=== PATIENT | male | born 1985 | race Caucasian/White ===

== ENCOUNTER 2017-11-26 10:00 | Observation (INO) | payer OTHER ==
[2017-11-26] MEDS ORDERED: NA CHLORIDE 0.9% 1,000 ML ONE ×2 (10:33→14:23)
[2017-11-26] MEDS ORDERED: KETOROLAC 30 MG/ML INJ ONE ×2 (10:33→15:23)
[2017-11-26] MEDS ORDERED: ONDANSETRON 4 MG/2 ML VIAL ONE (10:33)
[2017-11-26 10:51] LABS: Absolute Lymphocytes (CBC) 1.4 K/uL (0.7-4.9); Absolute Monocytes 1.1 K/uL (0.1-1.3); Absolute Neutrophil 17.8 K/uL (1.8-8.0); Basophils % 0.1 % (0-1.3); Eosinophils % 0.1 % (0-4.4); Hematocrit 43.5 % (39.6-49.0); Lymphocytes % 6.7 % (15.3-44.8); MCH 30.5 pg (27.0-35.0); MCV 90.8 fL (80-100); MPV 7.5 fL (7.6-11.3); Monocytes % 5.6 % (3.3-12.3); RBC Red Blood Cell Count 4.79 M/uL (4.33-5.43)
[2017-11-26 11:05] LABS: Potassium 3.9 mEq/L (3.6-5.0)
[2017-11-26 11:12] LABS: Albumin 4.5 g/dL (3.2-5.5); Bilirubin Direct 0.1 mg/dL (0-0.2); Bilirubin Total 0.7 mg/dL (0.3-1.2); Protein, Total 7.5 g/dL (6.0-8.3)
[2017-11-26 11:28] LABS: Blood Morphology Comment NOT SEEN (NOT SEEN); Platelet Estimate ADEQ
[2017-11-26 11:45] LABS: Urine Blood NEGATIVE (NEG); Urine Glucose NEGATIVE (NEG); Urine Protein NEGATIVE (NEG)
[2017-11-26 12:17] LABS: Urine Bacteria <20 /HPF (NONE SEEN); Urine RBC <5 /HPF (NONE SEEN)
[2017-11-26 12:18] LABS: Urine Culture Reflex Order NOT NEEDED
--- NOTE | 2017-11-26 14:06 | RAD REPORT ---
EXAM DESCRIPTION: CT - Abdomen Pelvis W Contrast - 11/26/2017 1:46 pm COMPARISON: None. TECHNIQUE: Biphasic, helical CT imaging of the abdomen and pelvis was performed following 100 ml non -ionic IV contrast. Oral contrast was given. All CT scans are performed using dose optimization technique as appropriate and may include automated exposure control or mA/KV adjustment according to patient size. FINDINGS: No suspicious findings in the lung bases. The liver, spleen, and pancreas show no suspicious findings. Gallbladder and biliary tree are also wi thout suspicious finding. Symmetric renal function is seen with no hydronephrosis or suspicious renal mass. No pyelonephritis o r acute renal parenchymal process. No urinary bladder abnormality. No prostate enlargement. A 16 mill imeter cyst in the posterior prostate may be a urethral diverticulum. No suspicion of an active or ac [place] process for this finding. No gastric dilatation or gastric wall thickening. No dilated large or small bowel. The appendix is ab normal at 8- 9 mm in diameter. [place] of the appendix are slightly thickened and edematous and there i s a trace amount of stranding in the periappendiceal fat. There are several right lower quadrant mese nteric lymph nodes. The right-side colon and terminal ileum are well opacified by oral contrast. Ther e is no contrast within the lumen of the appendix. No free air, free fluid or pneumatosis. No other area of inflammatory stranding. No mass or bulky lymphadenopathy. A small 2 centimeter fat only umbilical hernia is present. Fat extends into the orig in of the left inguinal canal. No adrenal abnormality. No suspicious bony findings. IMPRESSION: Early acute appendicitis. No abscess, free air or complicating factor. Appendix is classic right lower quadrant location. Additional nonacute findings detailed in the body of the report.
[2017-11-26] MEDS ORDERED: FENTANYL CITR 100 MCG/2 ML ONE ×2 (14:22→14:46)
[2017-11-26] MEDS ORDERED: CEFOXITIN/SWI 1gm 1 GM/10 ML SYR ONE (14:22)
[2017-11-26] MEDS ORDERED: METRONIDAZOLE 500mg IVPB 500 MG/100 ML BAG IV ONE (14:23)
[2017-11-26] MEDS ORDERED: Ringers Lactate 0 ML IV ONE (14:31)
--- NOTE | 2017-11-26 14:31 | EDPHYS ---
Physician Documentation [facility] Name: Esequiel Wynne Age: 32 yrs Sex: Male : 1985 Arrival Date: 11/26/2017 Time: 10:03 Bed 17 Private MD: Tc Shankar ED Physician Fili Hutchins HPI: 11/26 10:24 This 32 yrs old Male presents to ER via Ambulatory with complaints of cp Abdominal Pain. 10:24 The patient presents with abdominal pain right lower quadrant. Onset: The cp symptoms/episode began/occurred this morning. Associated signs and symptoms: Pertinent positives: nausea, Pertinent negatives: blood in stools, chest pain, constipation, diarrhea, dysuria, fever, vomiting. 10:24 The symptoms are described as constant. Modifying factors: the symptoms are aggravated cp by pressure. Severity of pain: in the emergency department the pain is actually worse moderately. Historical: - Allergies: 10:14 No Known Allergies; aj - Home Meds: 10:14 None [Active]; aj - PMHx: 10:14 None; aj - PSHx: 10:14 None; aj - Immunization history:: Adult Immunizations up to date. - Social history:: Smoking status: Patient/guardian denies using tobacco. - Ebola Screening: : No symptoms or risks identified at this time. ROS: 10:30 Constitutional: Negative for body aches, chills, fever, poor PO intake. cp 10:30 Eyes: Negative for injury, pain, redness, and discharge. cp 10:30 ENT: Negative for drainage from ear(s), ear pain, sore throat, difficulty swallowing, difficulty handling secretions. 10:30 Cardiovascular: Negative for chest pain, edema, palpitations. 10:30 Respiratory: Negative for cough, shortness of breath, wheezing. 10:30 Abdomen/GI: Positive for abdominal pain, Negative for vomiting, diarrhea, constipation, black/tarry stool, rectal bleeding. 10:30 Back: Negative for pain at rest, pain with movement, radiated pain. 10:30 : Positive for right groin pain, Negative for urinary symptoms. 10:30 Skin: Negative for cellulitis, rash. 10:30 Neuro: Negative for altered mental status, dizziness, headache, weakness. 10:30 All other systems are negative. Exam: 10:35 Constitutional: The patient appears in no acute distress, alert, awake, non-toxic, well cp developed, well nourished, uncomfortable. 10:35 Head/Face: Normocephalic, atraumatic. Eyes: Pupils equal round and reactive to light, cp extra-ocular motions intact. Lids and lashes normal. Conjunctiva and sclera are non-icteric and not injected. Cornea within normal limits. Periorbital areas with no swelling, redness, or edema. ENT: Nares patent. No nasal discharge, no septal abnormalities noted. Tympanic membranes are normal and external auditory canals are clear. Oropharynx with no redness, swelling, or masses, exudates, or evidence of obstruction, uvula midline. Mucous membranes moist. Chest/axilla: Normal chest wall appearance and motion. Nontender with no deformity. No lesions are appreciated. Cardiovascular: Regular rate and rhythm with a normal S1 and S2. No gallops, murmurs, or rubs. Normal PMI, no JVD. No pulse deficits. Respiratory: Lungs have equal breath sounds bilaterally, clear to auscultation and percussion. No rales, rhonchi or wheezes noted. No increased work of breathing, no retractions or nasal flaring. 10:35 Abdomen/GI: Inspection: abdomen appears normal, Bowel sounds: active, all quadrants, cp Palpation: soft, in all quadrants, moderate abdominal tenderness, in the right lower quadrant, rebound tenderness, is not appreciated, voluntary guarding, is elicited in the right lower quadrant. 10:35 Back: CVA tenderness, is absent. 10:35 Musculoskeletal/extremity: Exam is negative for decreased range of motion, deformity, cp edema, injury. 10:35 Skin: cellulitis, is not appreciated, no rash present. 10:35 Neuro: Orientation: to person, place \T\ time. Mentation: is normal, Cerebellar function: is grossly normal, Motor: moves all fours, Sensation: is normal. Vital Signs: 10:14 BP 101 / 73; Pulse 95; Resp 16; Temp 98.8; Pulse Ox 99% on R/A; Weight 94.8 kg; Height aj 5 ft. 11 in. (180.34 cm); Pain 7/10; 11:00 BP 108 / 76; Pulse 88; Resp 16; Pulse Ox 100% on R/A; Pain 3/10; hb 12:00 BP 116 / 76; Pulse 86; Resp 15; Pulse Ox 100% on R/A; Pain 2/10; hb 13:00 BP 108 / 68; Pulse 74; Resp 16; Pulse Ox 100% on R/A; hb 13:57 BP 107 / 67; Pulse 78; Resp 15; Pulse Ox 100% on R/A; Pain 2/10; hb 10:14 Body Mass Index 29.15 (94.80 kg, 180.34 cm) aj MDM: 10:19 Patient medically screened. cp 14:15 Data reviewed: vital signs, nurses notes, lab test result(s), radiologic studies, CT cp scan. 14:17 Physician consultation: Jae Bhatt MD was called at 14:17, was contacted at 14:17, cp regarding admission, to the operating room, patient's condition. 11/26 10:23 Order name: Amylase, Serum; Complete Time: 11:39 cp 11/26 10:23 Order name: Basic Metabolic Panel; Complete Time: 11:39 cp 11/26 11:39 Interpretation: Normal except: GFR 87. cp 11/26 10:23 Order name: CBC with Diff; Complete Time: 11:39 cp 11/26 11:39 Interpretation: Normal except: WBC 20.4; MPV 7.5; TEMITOPE% 87.5; LYM% 6.7; NEUT A 17.8. cp 11/26 10:23 Order name: Creatinine for Radiology; Complete Time: 11:39 cp 11/26 10:23 Order name: Hepatic Function; Complete Time: 11:39 cp 11/26 10:23 Order name: Lipase; Complete Time: 11:39 cp 11/26 10:23 Order name: Urine Microscopic Only; Complete Time: 12:25 cp 11/26 11:03 Order name: CT Abd/Pelvis - W/Contrast; Complete Time: 14:08 cp 11/26 11:28 Order name: Manual Differential; Complete Time: 11:39 EDMS 11/26 11:39 Interpretation: Normal except: BANDS [F] 3; LYM 10. cp 11/26 11:32 Order name: Urine Dipstick--Ancillary (enter results); Complete Time: 12:25 bd 11/26 10:23 Order name: IV Saline Lock; Complete Time: 10:50 cp 11/26 10:23 Order name: Labs collected and sent; Complete Time: 10:50 cp 11/26 10:23 Order name: Urine Dipstick-Ancillary (obtain specimen); Complete Time: 10:50 cp 11/26 14:02 Order name: NPO; Complete Time: 14:13 cp Administered Medications: 10:33 Drug: NS 0.9% 1000 ml Route: IV; Rate: 1 bolus; Site: right antecubital; hb 10:33 Drug: TORadol 30 mg Route: IVP; Site: right antecubital; hb 11:00 Follow up: Response: No adverse reaction; Pain is decreased hb 10:33 Drug: Zofran 4 mg Route: IVP; Site: right antecubital; hb 11:00 Follow up: Response: No adverse reaction hb 14:11 CANCELLED (Physician Discretion): Mefoxin 1 grams IVPB once over 30 mins; (mix in 50 mL cp NS) 14:28 Drug: NS 0.9% 1000 ml Route: IV; Rate: 125 ml/hr; Site: right antecubital; hb 14:40 Follow up: IV Status: Infusion continued upon admission hb 14:28 Drug: Mefoxin 2 grams Route: IVPB; Infused Over: 30 mins; Site: right antecubital; hb 14:40 Follow up: IV Status: Infusion continued upon admission hb 14:28 Drug: fentaNYL (PF) 25 mcg Route: IVP; Site: right antecubital; hb 15:55 Follow up: Response: Medication administered at discharge. hb 14:29 Drug: metroNIDAZOLE 500 mg Volume: 100 ml; Route: IVPB; Infused Over: 30 mins; Site: hb right antecubital; 14:40 Follow up: IV Status: Infusion continued upon admission hb Disposition: 19:15 Co-signature as Attending Physician, Fili Hutchins MD I agree with the assessment and kdr plan of care. Disposition: 11/26/17 14:30 Hospitalization ordered by Jae Bhatt for Observation. Preliminary diagnosis is Acute appendicitis. - Bed requested for Telemetry/MedSurg (observation). - Status is Observation. hb - Condition is Stable. - Problem is new. - Symptoms have improved. UTI on Admission? No Signatures: Dispatcher [employer] EDMS Ray, Fanta, RN RN aj Rittger, Fili, MD MD kdr Page, Toney, PA PA cp Conroy, Raquel, RN RN hb Corrections: (The following items were deleted from the chart) 11:39 11:02 Normal except: WBC 20.4; MPV 7.5; TEMITOPE% 87.5; LYM% 6.7. cp cp 14:11 14:02 Mefoxin 1 grams IVPB once over 30 mins; (mix in 50 mL NS) ordered. cp cp 14:22 14:10 Abdomen Limited+US.RAD.BRZ ordered. EDMS EDMS 14:51 14:30 Hospitalization Ordered by Jae Bhatt MD for Observation. Preliminary diagnosis hb is Acute appendicitis. Bed requested for Telemetry/MedSurg (observation). Status is Observation. Condition is Stable. Problem is new. Symptoms have improved. UTI on Admission? No. cp
--- NOTE | 2017-11-26 14:31 | ER ---
Nurse's Notes [facility] Name: Esequiel Wynne Age: 32 yrs Sex: Male : 1985 Arrival Date: 11/26/2017 Time: 10:03 Bed 17 Private MD: Tc Shankar Diagnosis: Acute appendicitis Presentation: 11/26 10:13 Presenting complaint: Patient states: RLQ abdominal pain that started this AM. aj Transition of care: patient was not received from another setting of care. Onset of symptoms was November 26, 2017. Care prior to arrival: None. 10:13 Method Of Arrival: Ambulatory aj 10:13 Acuity: TOMMY 3 aj 10:30 Risk Assessment: Do you want to hurt yourself or someone else? Patient reports no hb desire to harm self or others. Initial Sepsis Screen: Does the patient meet any 2 criteria? No. Patient's initial sepsis screen is negative. Does the patient have a suspected source of infection? No. Patient's initial sepsis screen is negative. Triage Assessment: 10:14 General: Appears in no apparent distress. uncomfortable, Behavior is calm, cooperative, aj appropriate for age. Pain: Complains of pain in right lower quadrant. Neuro: Level of Consciousness is awake, alert, obeys commands, Oriented to person, place, time, situation, Appropriate for age. Respiratory: Airway is patent Respiratory effort is even, unlabored, Respiratory pattern is regular, symmetrical. GI: Reports lower abdominal pain. Derm: Skin is intact, is healthy with good turgor, Skin is pink, warm \T\ dry. normal. Historical: - Allergies: 10:14 No Known Allergies; aj - Home Meds: 10:14 None [Active]; aj - PMHx: 10:14 None; aj - PSHx: 10:14 None; aj - Immunization history:: Adult Immunizations up to date. - Social history:: Smoking status: Patient/guardian denies using tobacco. - Ebola Screening: : No symptoms or risks identified at this time. Screenin:51 Abuse screen: Denies threats or abuse. Denies injuries from another. Nutritional hb screening: No deficits noted. Tuberculosis screening: No symptoms or risk factors identified. Fall Risk None identified. Assessment: 10:30 General: Appears in no apparent distress. uncomfortable, Behavior is cooperative, hb anxious. Pain: Pain currently is 7 out of 10 on a pain scale. Neuro: Level of Consciousness is awake, alert, obeys commands, Oriented to person, place, time, situation. Cardiovascular: Capillary refill < 3 seconds Patient's skin is warm and dry. Respiratory: Airway is patent Trachea midline Respiratory effort is even, unlabored, Respiratory pattern is regular, symmetrical. GI: Bowel sounds present X 4 quads. Abd is soft X 4 quads Abdomen is tender to palpation in right lower quadrant Reports lower abdominal pain, nausea. : No signs and/or symptoms were reported regarding the genitourinary system. EENT: No signs and/or symptoms were reported regarding the EENT system. Derm: No signs and/or symptoms reported regarding the dermatologic system. Skin is intact, is healthy with good turgor, Skin is pink, warm \T\ dry. Musculoskeletal: No signs and/or symptoms reported regarding the musculoskeletal system. 11:30 Reassessment: Patient appears in no apparent distress at this time. No changes from hb previously documented assessment. Patient and/or family updated on plan of care and expected duration. Pain level reassessed. Patient is alert, oriented x 3, equal unlabored respirations, skin warm/dry/pink. 11:51 Reassessment: Pt finished drinking oral contrast, CT dept notified. hb 12:43 Reassessment: Patient appears in no apparent distress at this time. Patient and/or hb family updated on plan of care and expected duration. Pain level reassessed. Patient is alert, oriented x 3, equal unlabored respirations, skin warm/dry/pink. Patient states symptoms have improved. 13:45 Reassessment: Patient appears in no apparent distress at this time. Patient and/or hb family updated on plan of care and expected duration. Pain level reassessed. Patient is alert, oriented x 3, equal unlabored respirations, skin warm/dry/pink. Patient states symptoms have improved. 14:30 Reassessment: Patient appears in no apparent distress at this time. No changes from hb previously documented assessment. Patient and/or family updated on plan of care and expected duration. Pain level reassessed. Patient is alert, oriented x 3, equal unlabored respirations, skin warm/dry/pink. Vital Signs: 10:14 BP 101 / 73; Pulse 95; Resp 16; Temp 98.8; Pulse Ox 99% on R/A; Weight 94.8 kg; Height aj 5 ft. 11 in. (180.34 cm); Pain 7/10; 11:00 BP 108 / 76; Pulse 88; Resp 16; Pulse Ox 100% on R/A; Pain 3/10; hb 12:00 BP 116 / 76; Pulse 86; Resp 15; Pulse Ox 100% on R/A; Pain 2/10; hb 13:00 BP 108 / 68; Pulse 74; Resp 16; Pulse Ox 100% on R/A; hb 13:57 BP 107 / 67; Pulse 78; Resp 15; Pulse Ox 100% on R/A; Pain 2/10; hb 10:14 Body Mass Index 29.15 (94.80 kg, 180.34 cm) aj ED Course: 10:03 Patient arrived in ED. mr 10:03 None, None is Private Physician. mr 10:10 Tc Shankar MD is Private Physician. mr 10:14 Triage completed. aj 10:14 Arm band placed on right wrist. Patient placed in waiting room, Patient notified of aj wait time. 10:16 Raquel Conroy, LEANDRO is Primary Nurse. hb 10:16 Toney Kaur PA is PHCP. cp 10:16 Fili Hutchins MD is Attending Physician. cp 10:32 Inserted saline lock: 20 gauge in right antecubital area, using aseptic technique. hb Blood collected. 10:51 Patient has correct armband on for positive identification. Placed in gown. Bed in low hb position. Call light in reach. Side rails up X 1. 13:[address] via wheelchair. mw3 13:45 CT completed. Patient tolerated procedure well. Patient moved back from CT. mw3 13:46 CT Abd/Pelvis - W/Contrast In Process Unspecified. EDMS 14:29 Jae Bhatt MD is Hospitalizing Provider. cp 14:45 No provider procedures requiring assistance completed. Patient admitted, IV remains in hb place. Administered Medications: 10:33 Drug: NS 0.9% 1000 ml Route: IV; Rate: 1 bolus; Site: right antecubital; hb 10:33 Drug: TORadol 30 mg Route: IVP; Site: right antecubital; hb 11:00 Follow up: Response: No adverse reaction; Pain is decreased hb 10:33 Drug: Zofran 4 mg Route: IVP; Site: right antecubital; hb 11:00 Follow up: Response: No adverse reaction hb 14:11 CANCELLED (Physician Discretion): Mefoxin 1 grams IVPB once over 30 mins; (mix in 50 mL cp NS) 14:28 Drug: NS 0.9% 1000 ml Route: IV; Rate: 125 ml/hr; Site: right antecubital; hb 14:40 Follow up: IV Status: Infusion continued upon admission hb 14:28 Drug: Mefoxin 2 grams Route: IVPB; Infused Over: 30 mins; Site: right antecubital; hb 14:40 Follow up: IV Status: Infusion continued upon admission hb 14:28 Drug: fentaNYL (PF) 25 mcg Route: IVP; Site: right antecubital; hb 15:55 Follow up: Response: Medication administered at discharge. hb 14:29 Drug: metroNIDAZOLE 500 mg Volume: 100 ml; Route: IVPB; Infused Over: 30 mins; Site: hb right antecubital; 14:40 Follow up: IV Status: Infusion continued upon admission hb Outcome: 14:30 Decision to Hospitalize by Provider. cp 14:45 Admitted to OR accompanied by nurse, family with patient, via stretcher, with chart. hb 14:45 Condition: stable 14:45 Instructed on the need for admit, Demonstrated understanding of instructions. 14:51 Patient left the ED. hb Signatures: Dispatcher [employer] Fanta Cortez, Elizabeth Gilman RN mr Toney Kaur PA PA cp Baxter, Heather, RN RN hb Willis, Michelle mw3
[2017-11-26] MEDS ORDERED: ROCURONIUM 50 MG/5 ML VIAL IV ONE (14:46)
[2017-11-26] MEDS ORDERED: MIDAZOLAM HCL 2 MG/2 ML INJ ONE (14:46)
[2017-11-26] MEDS ORDERED: PROPOFOL 200 MG/20 ML VIAL IV ONE (14:46)
[2017-11-26] MEDS ORDERED: ONDANSETRON 4 MG/2 ML VIAL IV PRN (14:56)
[2017-11-26] MEDS ORDERED: ACETAMINOPHEN 500 MG TAB PO PRN (14:56)
[2017-11-26] MEDS ORDERED: Morphine 2 MG/2 ML SYR IV PRN (14:56)
[2017-11-26] MEDS ORDERED: NA CHLORIDE 0.9% 1,000 ML IV SCH (15:00)
[2017-11-26] MEDS ORDERED: GLYCOPYRROLATE 0.2 MG/ML SYR ONE (15:23)
[2017-11-26] MEDS ORDERED: NEOSTIGMINE 1 MG/ML -5 ML SYRINGE ONE (15:24)
[2017-11-26] MEDS ORDERED: PROMETHAZINE 25 MG/ML VIAL ONE (15:52)
[2017-11-26] MEDS: MEPERIDINE HCL 25 MG/0.5 ML ONE ×2 (15:53→16:03)
[2017-11-26] MEDS ORDERED: HYDROCODONE/APAP 7.5/325 MG TAB PO PRN (15:58)
[2017-11-26] MEDS ORDERED: PROMETHAZINE 25 MG/ML VIAL IV PRN (16:00)
--- NOTE | 2017-11-26 16:07 | PREOPHP ---
Date of Admission: 11/26/2017 Chief Complaint: Abdominal pain. History Of Present Illness: The patient is a 32-year-old gentleman, who came in with overnight diffu se abdominal pain localized to the right lower quadrant. Denies any nausea or vomiting. No diarrhea or constipation. No blood in his stool. No dysuria or hematuria. No sore throat, runny nose, coug h, headaches, or dizziness. No chest pain. Some chills, but no fever. Appetite is good. The patie nt is hungry. Review of Systems: Otherwise unremarkable. Physical Examination: Vital Signs: Stable. He is currently afebrile. General: He is awake, alert, and oriented x3. Head and Neck: Cranial nerves 2 through 12 are grossly within normal limits. No neck masses. No JV D. Throat clear. Neck supple. Chest: Clear. Heart: S1, S2. Abdomen: Soft, nondistended. Positive right lower quadrant tenderness with rebound. No rigidity or guarding. Extremities: Adequately perfused. Nontender. Neuro: Nonfocal. Laboratory Data: White count is 20,000. CT of the abdomen and pelvis reviewed and is consistent wit h acute appendicitis. Assessment: Acute appendicitis. Plan: Admit, n.p.o., IV fluid, IV antibiotic, to the OR for lap appy possible open. The patient and understand risks, benefits, alternatives, and agreed to procedure. CAMPOS/MODL Voice ID: [id number]
--- NOTE | 2017-11-26 16:19 | OP ---
Date of Procedure: 11/26/2017 Surgeon: Jae Bhatt MD Preoperative Diagnosis: Acute appendicitis. Postoperative Diagnosis: Acute appendicitis. Procedure: Laparoscopic appendectomy. Estimated Blood Loss: Minimal. Specimen: Appendix. Findings: As above. Anesthesia: General. Complications: None. Disposition: The patient tolerated the procedure in stable condition and taken to Recovery in good g eneral condition. Operative Note: The patient was brought to the OR and placed in the supine position. General anesth esia was began. The patient was prepped and draped in usual sterile fashion. Marcaine 0.5% was infi ltrated locally. A 15 blade used to make a 1 cm supraumbilical midline incision. Subcutaneous tissu es divided. Fascia was identified and divided. A #1 Vicryl stay suture was placed. Then, a 12 mm t rocar was placed into the peritoneal cavity under direct vision. Pneumoperitoneum was established an d then two 5 trocars were placed, 1 in the epigastrium just to the right of midline and 2 in the righ t subcostal region. Laparoscopy revealed acute inflamed appendix. Base of the appendix on the cecum clearly identify. Mesoappendix was identified. Endo-KELLY stapling device was used to divide both st ructures under direct vision and then was retrieved through the umbilicus via an EndoCatch bag. Ther e was minimal oozing noted from the appendiceal artery and the mesoappendix. This was easily control led with vascular clips. The right lower quadrant was irrigated. Effluent clear. No evidence of bl eeding or bowel injury appreciated. Subsequently, all trocars were removed under direct vision. Sta y sutures were tied to each other across the fascial defect. Subcutaneous wounds were irrigated. Bl eeding controlled with cautery. A 3-0 chromic used to approximate the subcutaneous tissue. Staple w as used to close the skin. Sterile dressing was applied. The patient was awakened and taken to [facility] very in good general condition. /MODL Voice ID: [id number] Report ID: [id number]
[2017-11-26] MEDS ORDERED: CEFOXITIN/SWI 1gm 1 GM/10 ML SYR IVP SCH (18:00)
[2017-11-26] MEDS ORDERED: METRONIDAZOLE 500mg IVPB 500 MG/100 ML BAG IV SCH (18:00)
[2017-11-26] MEDS: Ringers Lactate 1,000 ML IV SCH ×2 (18:01→23:43)
[2017-11-26] MEDS: METRONIDAZOLE 500mg IVPB 500 MG/100 ML BAG IV SCH (18:01)
[2017-11-26] MEDS: CEFOXITIN/SWI 1gm 1 GM/10 ML SYR IVP SCH (18:01)
[2017-11-26] MEDS: MEPERIDINE HCL 50 MG/ML AMP IVP PRN (20:21)
[2017-11-27] MEDS: MEPERIDINE HCL 50 MG/ML AMP IVP PRN ×2 (00:14→06:05)
[2017-11-27] MEDS: CEFOXITIN/SWI 1gm 1 GM/10 ML SYR IVP SCH ×3 (00:14→12:00)
[2017-11-27] MEDS: METRONIDAZOLE 500mg IVPB 500 MG/100 ML BAG IV SCH ×3 (00:14→12:00)
[2017-11-27 05:04] LABS: Absolute Lymphocytes (CBC) 2.1 K/uL (0.7-4.9); Absolute Monocytes 0.8 K/uL (0.1-1.3); Absolute Neutrophil 8.6 K/uL (1.8-8.0); Basophils % 0.4 % (0-1.3); Eosinophils % 0.3 % (0-4.4); Hematocrit 36.4 % (39.6-49.0); MCH 31.2 pg (27.0-35.0); MCV 90.7 fL (80-100); MPV 7.3 fL (7.6-11.3); Monocytes % 6.5 % (3.3-12.3); RBC Red Blood Cell Count 4.01 M/uL (4.33-5.43)
[2017-11-27 05:25] LABS: Potassium 3.6 mEq/L (3.6-5.0)
[2017-11-27] MEDS: Ringers Lactate 1,000 ML IV SCH (08:00)
--- NOTE | 2017-11-28 05:18 | DS ---
Date of Discharge: 11/27/2017 Admitting Diagnosis: Acute appendicitis. Discharge Diagnosis: Acute appendicitis. Procedure Performed: Laparoscopic appendectomy. Hospital Course: The patient is a 32-year-old male who underwent the aforementioned procedure. It w as uneventful. The patient postoperatively is tolerating diet, ambulating. Pain is controlled with p.o. pain medication. Afebrile. White count is almost normalized. Therefore, the patient will be d ischarged home. Disposition: Home. Condition: Stable. Discharge Instructions: Resume home medications and diet. Activity as tolerated. No heavy lifting. Remove outer dressing in a.m. Shower. Keep wound clean and dry. Follow up in my office in 1 week . Call for appointment. Tylenol No. 3, one tablet p.o. q.4 hours p.r.n. pain. Cipro 500 mg p.o. q. 12 hours and Flagyl 500 mg p.o. q.6 hours. CAMPOS/MOSES Voice ID: [id number] Report ID: [id number]
== END 2017-11-27 12:07 | disposition home or self-care (01) ==
LOC: ER 10:00 → 2ND 14:56
PROVIDERS: ADMIT Surgery; ATTEND Surgery
PROC: 0DTJ4ZZ Resection of Appendix, Percutaneous Endoscopic Approach (ICD-10-PCS; principal; 2017-11-26 14:30)
DX: K35.80 Unspecified acute appendicitis (principal)
CPT/HCPCS: 36415; 74177; 80048; 80076; 81003; 81015; 82150; 83690; 85025; 88304; 96374; 96375; 99285; G0378; J2175; J2250; J2405; J2550; J2710; J3010; J7030; Q9967